=== PATIENT | female | born 1945 | race Caucasian/White ===

== ENCOUNTER 2020-12-24 13:18 | Emergency (ER) | payer MEDICARE, BC ==
--- NOTE | 2020-12-24 13:58 | EDM.PDOC ---
ED HPI GENERAL MEDICAL PROBLEM - General Chief Complaint: Behavioral/Psych Stated Complaint: [facility] Time Seen by Provider: 12/24/20 13:31 Source of Information: Reports: Patient, RN Notes Reviewed History Limitations: Reports: No Limitations - History of Present Illness INITIAL COMMENTS - FREE TEXT/NARRATIVE: Patient is a 75-year-old female presenting to the emergency department from the [facility] after having adverse reaction to contrast dye while having CT scan completed. Patient reports that she does not remember having CT contrast in the past, so she is unsure if she is allergic to it. She was feeling slightly anxious prior to the scan. After the dye was injected, she became shaky, short of breath, palpitations, and anxious. Patient reports this lasted about 5 minutes. She did get 50 mg of IV Benadryl. At this point she feels much better, however she does feel like she is a little shaky still. She denies any itching, sensation of swelling in her throat, shortness of breath, or chest pain at this time. Treatments SPOOL SALVAGER: Reports: IV/IO - Related Data Allergies Allergy/AdvReac Type Severity Reaction Status Date / Time acetaminophen [From NyQuil] Allergy Severe Hives Verified 12/24/20 13:29 alcohol Allergy Severe Hives Verified 12/24/20 13:29 dextromethorphan Allergy Severe Hives Verified 12/24/20 13:29 [From NyQuil] doxylamine [From NyQuil] Allergy Severe Hives Verified 12/24/20 13:29 pseudoephedrine [From NyQuil] Allergy Severe Hives Verified 12/24/20 13:29 caffeine AdvReac Severe Other Verified 12/24/20 13:29 [place] Oil Allergy Severe Hives Uncoded 12/24/20 13:29 Home Meds: Home Meds Amoxicillin 200 mg PO ASDIRECTED PRN 12/24/20 [History] Cholecalciferol (Vitamin D3) [Vitamin D3] 1 cap PO DAILY 12/24/20 [History] Lactobacillus Acidophilus [Acidophilus Lactobacilli] 1 tab PO DAILY 12/24/20 [History] Levothyroxine 25 mcg PO DAILY 12/24/20 [History] Lisinopril/Hydrochlorothiazide [Lisinopril-HCTZ 10-12.5 MG] 10 - 12.5 mg PO DAILY 12/24/20 [History] Multiple Vitamins-Mineral 1 cap PO DAILY 12/24/20 [History] Nystatin 1 applic TOP BID PRN 12/24/20 [History] Nystatin [Nystatin Crm] 1 applic TOP BID PRN 12/24/20 [History] metFORMIN [Glucophage XR] 500 mg PO BID 12/24/20 [History] Past Medical History Cardiovascular History: Reports: Hypertension Psychiatric History: Reports: Anxiety Endocrine/Metabolic History: Reports: Diabetes, Type II, Hypothyroidism, Obesity/BMI 30+ - Infectious Disease History Infectious Disease History: Reports: Novel Coronavirus - Past Surgical History GI Surgical History: Reports: Cholecystectomy Female Surgical History: Reports: Tubal Ligation Neurological Surgical History: Reports: C-Spine Musculoskeletal Surgical History: Reports: Hip Replacement, Knee Replacement, Other (See Below) Other Musculoskeletal Surgeries/Procedures:: Ankle Surgery, Cartilage removed from right knee Dermatological Surgical History: Reports: Other (See Below) Social & Family History - Tobacco Use Tobacco Use Status *Q: Never Tobacco User - Caffeine Use Caffeine Use: Reports: None - Recreational Drug Use Recreational Drug Use: No ED ROS GENERAL - Review of Systems Review Of Systems: Comprehensive ROS is negative, except as noted in HPI. ED EXAM, GENERAL - Physical Exam Exam: See Below Exam Limited By: No Limitations General Appearance: Alert, No Apparent Distress, Anxious Respiratory/Chest: No Respiratory Distress, Lungs Clear, Normal Breath Sounds, No Accessory Muscle Use, Chest Non-Tender Cardiovascular: Normal Peripheral Pulses, Regular Rate, Rhythm, No Edema, No Gallop, No JVD, No Murmur, No Rub Neurological: Alert, Oriented, CN II-XII Intact, Normal Cognition, Normal Reflexes, No Motor/Sensory Deficits Psychiatric: Normal Affect, Normal Mood Skin Exam: Warm, Dry, Intact, Normal Color, No Rash #1 Interpretation EKG Date: 12/24/20 Time: 13:42 Rhythm: NSR Rate (Beats/Min): 71 [place]: Normal P-Wave: Present QRS: RBBB ST-T: Normal QT: Normal Comparison: NA - No Prior EKG Course - Vital Signs Last Recorded V/S: Last Vital Signs Temp 98.1 F 12/24/20 13:23 Pulse 77 12/24/20 13:23 Resp 16 12/24/20 13:23 BP 156/78 H 12/24/20 13:23 Pulse Ox 98 12/24/20 13:23 - Orders/Labs/Meds Labs: Laboratory Tests 12/24/20 12/24/20 Range/Units 14:10 14:10 WBC 8.96 (3.98-10.04) K/mm3 RBC 4.91 (3.98-5.22) M/mm3 Hgb 13.6 (11.2-15.7) gm/dl Hct 41.0 (34.1-44.9) % MCV 83.5 (79.4-94.8) fl MCH 27.7 (25.6-32.2) pg MCHC 33.2 (32.2-35.5) g/dl RDW Std Deviation 43.4 (36.4-46.3) fL Plt Count 230 (182-369) K/mm3 MPV 11.0 (9.4-12.3) fl Neut % (Auto) 73.8 H (34.0-71.1) % Lymph % (Auto) 17.1 L (19.3-51.7) % Avery % (Auto) 6.0 (4.7-12.5) % Eos % (Auto) 2.0 (0.7-5.8) Baso % (Auto) 0.4 (0.1-1.2) % Neut # (Auto) 6.61 H (1.56-6.13) K/mm3 Lymph # (Auto) 1.53 (1.18-3.74) K/mm3 Avery # (Auto) 0.54 H (0.24-0.36) K/mm3 Eos # (Auto) 0.18 (0.04-0.36) K/mm3 Baso # (Auto) 0.04 (0.01-0.08) K/mm3 Sodium 142 (136-145) mEq/L Potassium 4.1 (3.5-5.1) mEq/L Chloride 103 (98-107) mEq/L Carbon Dioxide 29 (21-32) mEq/L Anion Gap 14.1 (5-15) BUN 15 (7-18) mg/dL Creatinine 1.0 (0.55-1.02) mg/dL Est Cr Clr Drug Dosing 45.08 mL/min Estimated GFR (MDRD) 54 (>60) mL/min BUN/Creatinine Ratio 15.0 (14-18) Glucose 129 H (70-99) mg/dL Calcium 9.4 (8.5-10.1) mg/dL Total Bilirubin 0.5 (0.2-1.0) mg/dL AST 29 (15-37) U/L ALT 37 (14-59) U/L Alkaline Phosphatase 100 (46-116) U/L Troponin I < 0.017 (0.00-0.056) ng/mL Total Protein 7.3 (6.4-8.2) g/dl Albumin 3.5 (3.4-5.0) g/dl Globulin 3.8 gm/dL Albumin/Globulin Ratio 0.9 L (1-2) - Re-Assessments/Exams Free Text/Narrative Re-Assessment/Exam: Patient is a 75-year-old female presenting to the emergency department after experiencing what sounds like a panic attack after being injected with contrast dye during CT scan at [facility]. Patient reported feeling short of breath, shaky, anxious, and having chest palpitations. Symptoms last approximately 5 minutes and then resolved. She is feeling slightly shaky now but is otherwise well. I have ordered blood work, EKG, chest x-ray. We will watch her to ensure she continues to improve. 12/24/20 14:56 Work-up is unremarkable. Troponin is undetectably low. EKG shows no acute abnormalities. Chest x-ray is normal. Patient is feeling much better. She is no longer having any jitteriness. She would like to go home. Discussed return precautions. Discharge instructions as documented. Departure - Departure Time of Disposition: 14:56 Disposition: Home, Self-Care 01 Condition: Good Clinical Impression: Anxiety - Discharge Information *PRESCRIPTION DRUG MONITORING PROGRAM REVIEWED*: No *COPY OF PRESCRIPTION DRUG MONITORING REPORT IN PATIENT IOANA: No Instructions: Managing Anxiety, Adult Referrals: Daniel Linder MD [Primary Care Provider] - Forms: ED Department Discharge Additional Instructions: You were seen in the emergency department today after experiencing shaking, shortness of breath, palpitations, and anxiety after receiving IV contrast for CT scan at [place]. Work-up included blood work, EKG, chest x-ray. Results of work-up were found to be normal. You likely experienced a panic attack. Recommend that you rest. You should experience any new or worsening symptoms, please not hesitate to return to the emergency department for reevaluation. Sepsis Event Note (ED) - Evaluation Sepsis Screening Result: No Definite Risk - Focused Exam Vital Signs: Vital Signs Temp Pulse Resp BP Pulse Ox 12/24/20 13:23 98.1 F 77 16 156/78 H 98
--- NOTE | 2020-12-24 15:48 | CR ---
Chest: PA and lateral views of the chest were obtained. Comparison: No prior chest imaging is available. Heart size and mediastinum are within normal limits. Lungs are clear with no acute parenchymal change. Slight scoliosis is noted within the spine. Diffuse disc space narrowing and endplate spurring is also noted within the spine. Impression: 1. Findings as noted above. 2. Nothing acute is seen on 2 view chest x-ray. Diagnostic code #2
== END 2020-12-24 15:17 | disposition home or self-care (01) ==
LOC: JD.ED 13:18
DX: F41.9 Anxiety disorder, unspecified (principal); I10 Essential (primary) hypertension; E11.9 Type 2 diabetes mellitus without complications; E03.9 Hypothyroidism, unspecified; E66.9 Obesity, unspecified; Z68.39 Body mass index [BMI] 39.0-39.9, adult; Z86.16 Personal history of COVID-19; Z91.048 Other nonmedicinal substance allergy status; Z88.8 Allergy status to other drugs, medicaments and biological substances; Z91.018 Allergy to other foods; Z79.899 Other long term (current) drug therapy
CPT/HCPCS: 36415; 71046; 71046-26; 80053; 84484; 85025; 93005; 99285-25